=== PATIENT | male | born 1935 | race Caucasian/White ===

== ENCOUNTER → 2017-03-28 | Outpatient (CLI) | payer MEDICARE, OTHER ==
[2015-09-09 22:36] VITALS: BP 151/77
--- NOTE | 2017-03-28 15:10 | Diagnostic Imaging Report ---
EPI QURESHI [facility] [address] [facility] [address] 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 Normal compressibility. No luminal filling defect. Normal waveforms and response to augmentation. No popliteal region fluid collection. By report greater saphenous vein surgically removed 7 years ago. Impression: No evidence for deep venous thrombosis. Electronically signed on Mar 28, 2017 3:06:52 PM AEGIS CONSOLE OPERATOR TRACK by: Stephen HOLCOMB
== END ==
LOC: RAD 14:32
PROVIDERS: ATTEND Physician Assistant
DX: M79.604 Pain in right leg (principal)
CPT/HCPCS: 93971

== ENCOUNTER 2017-09-25 20:06 | Emergency (ER) | payer MEDICARE, OTHER ==
[2017-09-25] MEDS ORDERED: NITROGLYCERIN 0.4 MG TAB.SUBL SL PRN (20:19)
[2017-09-25] MEDS ORDERED: ASPIRIN 81 MG CHEW TAB PO ONE (20:19)
[2017-09-25] MEDS ORDERED: NITROGLYCERIN 0.4 MG TAB.SUBL SL ONE (20:35)
[2017-09-25] MEDS ORDERED: METOCLOPRAMIDE HCL 5 MG TABLET PO ONE (20:58)
[2017-09-25] MEDS ORDERED: HYOSCYAMINE SULFATE 0.125 MG TAB.SUBL SL ONE (21:01)
[2017-09-25] MEDS ORDERED: PANTOPRAZOLE SODIUM INJ. 40 MG VIAL ONE (21:05)
[2017-09-25] MEDS ORDERED: 0.9 % SODIUM CHLORIDE 100 ML IV ONE (21:05)
[2017-09-25] MEDS ORDERED: PANTOPRAZOLE SODIUM 40 MG in 0.9 % SODIUM CHLORIDE 50 ML IV ONE (21:05)
[2017-09-25 21:20] LABS: BASOPHILS % 0.4 (0.0-1.5); EOSINOPHILS % 3.3 % (0.0-6.8); MEAN CORPUSCULAR VOLUME 91.1 fl (80.0-100.0); MONOCYTES % 6.5 % (0.0-11.0); NEUTROPHILS # 5.6 # k/uL (1.4-7.7)
[2017-09-25] MEDS ORDERED: HEPARIN SODIUM,PORCINE/D5W 20,000 UNIT/500 ML BAG IV ONE (21:42)
[2017-09-25] MEDS ORDERED: HEPARIN SODIUM 5000 UNIT/1 ML IVP ONE (21:42)
[2017-09-25] MEDS ORDERED: NITROGLYCERIN IN 5 % DEXTROSE 50 MG/250 ML ML IV ONE (21:45)
[2017-09-25] MEDS ORDERED: MORPHINE SULFATE 4 MG/ML PREFILLED SYR ONE (22:08)
[2017-09-25] MEDS ORDERED: MORPHINE SULFATE 4 MG/ML PREFILLED SYR IVP ONE (22:10)
[2017-09-25 22:27] LABS: eGFR (African) > 60; eGFR (Non-African) > 60
--- NOTE | 2017-09-25 22:45 | Diagnostic Imaging Report ---
[facility] [address] [facility] [address] [place] [address]. [address] Report Submission Date: Sep 25, 2017 9:35:38 PM CDT Patient Study Name: ABDOULAYE COLEMAN Date: Sep 25, 2017 9:03:54 PM CDT Modality Type: DX Gender: M Description: CHEST : 31 Institution: [facility] [place] [facility] Physician: ASHWIN REDDY Chest AP portable Date of Exam: September 25, 2017. History: PT STATES CHEST PAIN (Hx) / ITS.REASON chest pain Findings: Borderline cardiomegaly is present. There is a slight right lower lobe infiltrate. The trachea is relatively midline and the aortic arch contour is normal. Sternal surgical wires and manifestations of prior cardiac surgery. There is mild pulmonary vascular congestion. Impression: Slight right lower lobe infiltrate. Borderline cardiomegaly and mild pulmonary vascular congestion. Electronically signed on Sep 25, 2017 9:35:38 PM CDT by: Brenda HOLCOMB
[2017-09-25] MEDS ORDERED: CLOPIDOGREL BISULFATE 75 MG TABLET PO ONE (23:40)
--- NOTE | 2017-09-26 00:01 | ED Physician Documentation ---
Chest Pain - HISTORIAN Historian: patient - HPI Stated Complaint: CHEST PAIN Chief Complaint: Chest Pain Additional Information: Pt. had chest discomfort and abdominal discomfort 1 week ago. He states that he had another episode yesterday which was mild but this morning he had significant chest pain. When it recurred at 6 pm today and it felt like his past RI he felt it should be evaluated. Onset: days ago (7 days ago x 1, another episode yestaerday and 2 today.) Timing: sudden onset Duration: sudden-onset Last known Well Date: 09/19/17 Last Known Well Time: 00:00 Context: activity Severity: moderate Quality: pressure, like prior RI, other (radiation to back, gi distress) Chest Pain Radiation: back Chest Pain Signs/Symptoms: nausea, weakness. denies: vomiting, diaphoresis, cool extremities, dizziness, dyspnea, tachypnea, tachycardia, hypotension, palpitations Worsened By: exertion Relieved By: nothing Further Comments: no - ROS CONST: no problems MS/LYMPH: none GI/: nausea EYES/ENT: none SKIN/ENDO: none NEURO/PSYCH: none - PAST HX RI risk factors: hypertension, cardiac disease, AMI, other (sleep apnea) Neuro deficit: none GI disease: none (no known chronic gi issues, all gi issues are associated with present chest pain, nausea, upper quadrant abdominal pain) Lung disease: none Surgeries/Procedures: cardiac bypass Immunizations: referred to PCP Allergies/Adverse Reactions: Allergies Allergy/AdvReac Type Severity Reaction Status Date / Time Penicillins Allergy Severe Hives Verified 09/25/17 20:34 acetaminophen [From Vicodin] AdvReac Dizziness Verified 09/25/17 20:34 hydrocodone bitartrate AdvReac Dizziness Verified 09/25/17 20:34 [From Vicodin] Home Medications: Ambulatory Orders Medication Instructions Recorded Chromium Picolinate 1,000 mcg PO DAILY u2 09/20/15 Garlic 1,000 mg PO DAILY av 09/20/15 Harothorn Benies 525 mg 3 tabs daily 09/20/15 Motherwart 425 mg 3 pills daily 09/20/15 - SOCIAL HX Smoking History: non-smoker Alcohol Use: none Drug Use: none - FAMILY HX Family HX: none - VITAL SIGNS Vital Signs: Vital Signs Temp Pulse Resp BP Pulse Ox 98.4 F 52 L 18 194/119 95 09/25/17 20:06 09/25/17 23:30 09/25/17 20:06 09/25/17 20:06 09/25/17 23:30 - REVIEWED ASSESSMENTS Nursing Assessment Reviewed: Yes Vitals Reviewed: Yes Progress - Results/Orders Results/Orders: ekg, trop, cbc, cmp, ua, cxr ordered in er - Progress Progress: pt. stablilized in ER Critical Care Note - Critical Care Note Total Time (mins): 30 ED Results Lab/Radiology - Lab Results Lab Results: Lab Results 09/25/17 09/25/17 09/25/17 20:43 20:43 20:43 WBC 8.70 K/ul K/ul (4.00-12.00) RBC 5.45 M/ul H M/ul (3.90-5.20) Hgb 16.9 g/dL g/dL (12.0-18.0) Hct 49.6 % % (37.0-53.0) MCV 91.1 fl fl (80.0-100.0) MCH 31.0 pg pg (28.0-34.0) MCHC 34.0 g/dL g/dL (30.0-36.0) RDW 13.2 % % (11.3-14.3) Plt Count 229 K/mm3 K/mm3 (130-400) Neut % (Auto) 64.3 % % (39.0-79.0) Lymph % (Auto) 23.3 % % (16.0-50.0) [place] % (Auto) 6.5 % % (0.0-11.0) Eos % (Auto) 3.3 % % (0.0-6.8) Baso % (Auto) 0.4 (0.0-1.5) Neut # (Auto) 5.6 # k/uL # k/uL (1.4-7.7) Lymph # (Auto) 2.0 # k/uL # k/uL (0.6-4.0) Juncos # (Auto) 0.6 # k/uL # k/uL (0.0-0.9) Eos # (Auto) 0.3 # k/uL # k/uL (0.0-0.6) Baso # (Auto) 0.0 # k/uL # k/uL (0.0-0.5) Reactive Lymphs % 2.1 % % (0.0-5.0) Reactive Lymphs # 0.2 # k/uL # k/uL (0.0-0.8) Sodium 138 mmol/L mmol/L (136-145) Potassium 4.2 mmol/L mmol/L (3.5-5.1) Chloride 103 mmol/L mmol/L (98-107) Carbon Dioxide 22 mmol/L mmol/L (22-30) BUN 28 mg/dL H mg/dL (9-20) Creatinine 1.20 mg/dL mg/dL (0.66-1.25) Estimated Creat Clear 79 Est GFR ( Amer) > 60 (60 - ) Est GFR (Non-Af Amer) > 60 (60 - ) Glucose 214 mg/dL H mg/dL (74-106) Calcium 9.6 mg/dL mg/dL (8.4-10.2) Total Bilirubin 0.8 mg/dL mg/dL (0.2-1.3) AST 31 U/L U/L (15-46) ALT 30 U/L U/L (13-69) Alkaline Phosphatase 84 U/L U/L (38-126) Troponin I 0.58 ng/mL H ng/mL (0.03-0.06) Total Protein 8.1 g/dL g/dL (6.3-8.2) Albumin 4.7 g/dL g/dL (3.5-5.0) - Radiology Radiology Impressions: cxr clear - Orders Orders: ED Orders Category Date Time Status Continuous EKG monitoring Q30M Care 09/25/17 20:19 Active Continuous Pulse Oximetry Q30M Care 09/25/17 20:[address] IV Lock 1T Care 09/25/17 20:19 Active CHEST 1VIEW [RAD] Routine Exams 09/25/17 Completed BNP [NT-proBNP] Stat Lab 09/25/17 21:58 Ordered CBC/PLATELET/DIFF Routine Lab 09/25/17 20:43 Completed CMP Routine Lab 09/25/17 20:43 Completed TROPONIN I (cTnI) Stat Lab 09/25/17 20:43 Completed URINALYSIS Routine Lab 09/25/17 20:25 Ordered 0.9 % Sodium Chloride [Sodium Chloride] 100 ml Med 09/25/17 21:05 Discontinued IV .STK-MED Aspirin Med 09/25/17 20:19 Discontinued 324 mg PO NOW ONE Clopidogrel Bisulfate [Plavix] Med 09/25/17 23:40 Discontinued 300 mg PO NOW ONE Heparin Sodium [Heparin] Med 09/25/17 21:42 Discontinued 5,000 unit IVP NOW ONE Heparin Sodium,Porcine/D5w [Heparin] Med 09/25/17 21:42 Active 20,000 unit in 500 ml IV 1T Hyoscyamine Sulfate [Oscimin Sl] Med 09/25/17 21:01 Discontinued 0.25 mg SL 1T ONE Metoclopramide HCl [Reglan] Med 09/25/17 20:58 Discontinued 10 mg PO NOW ONE Morphine Sulfate [DepoDUR] Med 09/25/17 22:08 Discontinued 4 mg .ROUTE .STK-MED ONE Morphine Sulfate [DepoDUR] Med 09/25/17 22:10 Discontinued 4 mg IVP NOW ONE Nitroglycerin [Nitroquick] Med 09/25/17 20:19 Ordered 0.4 mg SL Q5M PRN Nitroglycerin in 5 % Dextrose [Ntg 0.2 mg/ml in D5w] Med 09/25/17 21:45 Active 50 mg in 250 ml IV 1T Pantoprazole Sodium [Protonix] Med 09/25/17 21:05 Discontinued 40 mg .ROUTE .STK-MED ONE Pantoprazole Sodium [Protonix] 40 mg Med 09/25/17 21:05 Discontinued 0.9 % Sodium Chloride [Sodium Chloride] 50 ml IV 1T Oxygen Daily Oxygen 09/25/17 20:30 Ordered EKG WITH COMPARISON Stat Ther 09/25/17 20:19 Ordered Chest Pain Physical Exam - EXAM General Appearance: alert, moderate distress EENT: eye inspection normal, ENT inspection normal, pharynx normal, no signs of dehydration, TYLER, no nystagmus, TM's nml Neck: nml inspection, no carotid bruit Respiratory: no resp. distress, chest non-tender, nml breath sounds CVS: reg. rate & rhythm Abdomen: soft, no organomegaly, tenderness (left upper quadrant), decreased BS Skin: warm/dry, normal color Extremities: non-tender, normal range of motion, no evidence of injury, no edema Neuro: oriented X3, CN's nml as tested, motor nml, sensation nml, mood/affect nml, cognition normal Discharge Clincal Impression: Acute RI Qualifiers: Myocardial infarction type: non-ST elevation myocardial infarction Qualified Code(s): I21.4 - Non-ST elevation (NSTEMI) myocardial infarction Referrals: Gigi Wills MD [Primary Care Provider] - 2 Days Comments: Pt. given 0.4 mg SL ntg in ER. Also given Protonix 40 mg IVPB, Hyoscyamine 0.25 mg p.o., Reglan 10 mg p.o. in ER. Once trop back and EKG done, pt. started on NTG drip at 6 cc/hr, Heparin given 500 units IVP and a drip at 1000 units/hr started. 4 mg MS given IVP. Pain down from 6/10 to 0-1/10. As per Dr. Velazquez, pt. given 300 mg Pavix in ER. Condition: Stable Disposition: 01 HOME, SELF-CARE Decision to Admit: NO Decision Time: 00:06
[2017-09-26 00:02] VITALS: BP 152/59
[2017-09-26] MEDS ORDERED: ONDANSETRON HCL/PF 4 MG/ 2ML VIAL ONE (00:10)
[2017-09-26 06:48] LABS: APPEARANCE,URINE CLEAR (CLEAR); COLOR,URINE YELLOW (YELLOW); OCCULT BLOOD,URINE TRI (NEGATIVE); PH URINE 6.5 (5.0 - 8.0); UROBILINOGEN URINE 0.2 Eu (0.2-1.0)
[2017-09-26] MEDS ORDERED: MORPHINE SULFATE 4 MG/ML PREFILLED SYR IVP ONE (23:55)
[2017-09-26] MEDS ORDERED: ONDANSETRON HCL/PF 4 MG/ 2ML VIAL IVP ONE (23:55)
== END 2017-09-26 | disposition home or self-care (01) ==
LOC: ED 20:06
DX: I21.4 Non-ST elevation (NSTEMI) myocardial infarction (principal)
CPT/HCPCS: 71045; 80053; 81002; 84484; 85025; 93005; A9270; J1644; J2270; J2405; J3490; 96365; 96368; 96375; 96376; 99291; S1016

== ENCOUNTER 2017-10-02 11:29 | Outpatient (CLI) | payer MEDICARE, OTHER ==
[2017-10-02 11:56] LABS: eGFR (Non-African) 51
== END 2017-10-02 11:35 ==
LOC: RT 11:29
PROVIDERS: ATTEND Family Medicine
DX: I49.9 Cardiac arrhythmia, unspecified (principal); E16.2 Hypoglycemia, unspecified
CPT/HCPCS: 36415; 80053; 83036

== ENCOUNTER 2017-10-23 08:07 | Outpatient (CLI) | payer MEDICARE, OTHER ==
[2017-10-23 09:08] LABS: eGFR (African) > 60; eGFR (Non-African) 51
--- NOTE | 2017-10-23 17:09 | Diagnostic Imaging Report ---
CLEO RODGERS [facility] [address] [facility] [address] Report Submission Date: Oct 23, 2017 1:00:41 PM CDT Patient Study Name: ABDOULAYE COLEMAN Date: Oct 23, 2017 9:21:30 AM CDT Modality Type: CT\SR Gender: M Description: CT ABD PELVIS W/ CON : 33 Institution: [facility] Physician: CLEO RODGERS CT abdomen and pelvis with contrast. History: Left-sided abdominal pain and epigastric pain for 4-5 months. Technique: Transaxial computed tomographic images of the abdomen pelvis were obtained following the uneventful administration of intravenous contrast according to standard protocol. Findings: Small left pleural effusions present with left basilar atelectasis. The heart is mildly enlarged. There is mild steatosis of the liver. The gallbladder, pancreas, spleen, adrenals and bilateral kidneys are largely unremarkable with 1 cm simple left renal cyst. There is no calculus or hydronephrosis. The ureters can be followed to the bladder without obstruction. A few small diverticula present in the sigmoid colon and descending colon without evidence of diverticulitis. The appendix is normal. There is atherosclerosis throughout the aorta. There is no adenopathy present. The urinary bladder is contracted. Radiation marker seeds are present within the prostate gland. There is no free fluid. There is multilevel degenerative change in lumbar spine most significant at L4- 5 and L5-S1. Impression: 1. Diverticulosis without diverticulitis. 2. Small left pleural effusion. 3. Additional findings include simple left renal cyst, diffuse atherosclerosis, thoracolumbar spondylosis, and cardiomegaly. Electronically signed on Oct 23, 2017 1:00:41 PM CDT by: Trevor Golden [facility]
== END 2017-10-23 08:10 ==
LOC: RAD 08:07
PROVIDERS: ATTEND Family Medicine
DX: R10.9 Unspecified abdominal pain (principal); R11.0 Nausea; I10 Essential (primary) hypertension
CPT/HCPCS: 74177; 80048; Q9967

== ENCOUNTER 2017-11-26 10:24 | Outpatient (CLI) | payer MEDICARE, OTHER ==
--- NOTE | 2017-11-26 18:46 | Diagnostic Imaging Report ---
JULIO CHIANG [facility] [address] [facility] [address] [place], [place]. [address] Report Submission Date: Nov 26, 2017 1:34:51 PM CDT Patient Study Name: ABDOULAYE COLEMAN Date: Nov 26, 2017 10:42:16 AM CDT Modality Type: CT\SR Gender: M Description: CT MAXILLOFACIAL W/O D : 33 Institution: [facility] Physician: JULIO CHIANG CT of the paranasal sinuses Clinical history: Chronic sinusitis for several months. Nausea. </TECHNIQUE/> CT of the paranasal sinuses is performed in contiguous axial slices with sagittal and coronal reconstructions. Findings: There are small retention cysts in the floor of the maxillary sinuses bilaterally. Paranasal sinuses are otherwise normally formed and aerated. There is no air fluid level or bony destruction. There is mild nasal septal deviation to the right. The nasal airway passages are patent. Ostiomeatal complex is within normal limits. </IMPRESSION/> 1. Small retention cyst in the maxillary sinuses. 2. Mild nasal septal deviation. Electronically signed on Nov 26, 2017 1:34:51 PM CDT by: Levi HOLCOMB
== END 2017-11-26 10:26 ==
LOC: RAD 10:24
PROVIDERS: ATTEND Otolaryngology
DX: J32.4 Chronic pansinusitis (principal)
CPT/HCPCS: 70486

== ENCOUNTER 2018-03-06 14:29 | Outpatient (CLI) | payer MEDICARE, OTHER ==
[2018-03-06 14:57] LABS: APPEARANCE,URINE CLOUDY (CLEAR); COLOR,URINE RED (YELLOW); OCCULT BLOOD,URINE 3+ (NEGATIVE)
[2018-03-06 14:58] LABS: PH URINE 5.5 (5.0 - 8.0)
== END 2018-03-06 14:34 | disposition home or self-care (01) ==
LOC: LAB 14:29
PROVIDERS: ATTEND Family Medicine
DX: R31.9 Hematuria, unspecified (principal)
CPT/HCPCS: 81002

== ENCOUNTER 2018-06-12 14:13 | Outpatient (CLI) | payer MEDICARE, OTHER ==
[2018-06-12 14:48] LABS: BASOPHILS % 0.7 (0.0-1.5); EOSINOPHILS % 2.8 % (0.0-6.8); MONOCYTES % 6.6 % (0.0-11.0)
[2018-06-12 15:09] LABS: eGFR (Non-African) > 60
== END 2018-06-12 14:25 ==
LOC: LAB 14:13
PROVIDERS: ATTEND Internal Medicine Cardiovascular Disease
DX: K92.1 Melena (principal)
CPT/HCPCS: 36415; 80053; 85025

== ENCOUNTER 2018-06-22 14:37 | Outpatient (CLI) | payer MEDICARE, OTHER ==
--- NOTE | 2018-06-22 15:53 | Diagnostic Imaging Report ---
CLEO RODGERS [facility] [address] [facility].[address] [address] Report Submission Date: Jun 22, 2018 3:43:11 PM CLINICAL STUDIES SPECIALIST Patient Study Name: ABDOULAYE COLEMAN Date: Jun 22, 2018 3:01:36 PM CLINICAL STUDIES SPECIALIST Modality Type: US Gender: M Description: US EXTREMITY VEINS UNILAT : 31 Institution: [facility] Physician: CLEO RODGERS Right lower extremity venous duplex History: Right lower extremity pain Duplex and color flow imaging was performed through the right lower extremity femoral popliteal venous system revealing normal compression and normal augmentation from the common femoral vein to the popliteal vein. The calf veins are not well visualized. Only the distal posterior tibial vein could be visualized and demonstrates normal flow. Impression: No evidence for deep venous thrombosis from the common femoral vein to the popliteal vein. The calf veins are poorly visualized. Electronically signed on Jun 22, 2018 3:43:11 PM CLINICAL STUDIES SPECIALIST by: Florecita HOLCOMB
== END 2018-06-22 14:40 ==
LOC: RAD 14:37
PROVIDERS: ATTEND Family Medicine
DX: M79.604 Pain in right leg (principal)
CPT/HCPCS: 93971

== ENCOUNTER 2018-06-30 08:39 | Outpatient (CLI) | payer MEDICARE, OTHER ==
[2018-06-30 08:52] LABS: BASOPHILS % 0.6 (0.0-1.5); EOSINOPHILS % 3.1 % (0.0-6.8); MEAN CORPUSCULAR HEMOGLOBIN 30.3 pg (28.0-34.0); MONOCYTES % 6.1 % (0.0-11.0); NEUTROPHILS # 6.2 # k/uL (1.4-7.7)
== END 2018-06-30 08:40 ==
LOC: LAB 08:39
PROVIDERS: ATTEND Family Medicine
DX: D45 Polycythemia vera (principal); I10 Essential (primary) hypertension; I25.10 Atherosclerotic heart disease of native coronary artery without angina pectoris; I48.0 Paroxysmal atrial fibrillation
CPT/HCPCS: 36415; 85025

== ENCOUNTER 2018-10-15 10:57 | Outpatient (CLI) | payer MEDICARE, OTHER ==
[2018-10-15 11:15] LABS: APPEARANCE,URINE CLOUDY (CLEAR); COLOR,URINE RED (YELLOW)
[2018-10-15 11:16] LABS: OCCULT BLOOD,URINE 3+ (NEGATIVE); UROBILINOGEN URINE 0.2 Eu (0.2-1.0)
== END 2018-10-15 11:00 ==
LOC: LAB 10:57
PROVIDERS: ATTEND Family Medicine
DX: R31.9 Hematuria, unspecified (principal)
CPT/HCPCS: 81002; 87086